=== PATIENT | male | born 1975 | race Caucasian/White ===

== ENCOUNTER 2017-07-23 16:07 | Emergency (ER) | payer BC ==
[~2017-07-23 16:07] MED LIST: Sodium Chloride 0.9% 1,000 ML BAG ONE
--- NOTE | 2017-07-23 17:39 | CT ---
CHEST CT WITHOUT CONTRAST 07/23/17 HISTORY: Pain. COMPARISON: None. TECHNIQUE: Noncontrast chest CT is performed in the axial plane. Reformatted images are submitted for interpreta tion. FINDINGS: Limited evaluation of the mediastinum due to lack of IV contrast. No mediastinal mass lymphadenopathy , or hematoma. Normal heart size. No pericardial effusion. No coronary calcifications. Normal caliber thoracic and upper abdominal aorta. The visualized upper solid organs are unremarkable with the exception of the right kidney where there appears to be longstanding hydronephrosis with resultant right renal cortical thinning. Refer to abd omen CT report for further detail. There are no lytic or blastic lesions in the osseous structures. Trachea and central bronchi are patent. Minimal atelectatic changes in both lower lobes. No masses or consolidation. No pleural effusion or pneumothorax. There is a soft tissue density in the distal thoracic esophagus. There appears to be associated small hiatal hernia. Soft tissue densities within the lumen of the esophagus. The possibility of ingested material versus a component of herniation versus an intraluminal neoplastic process are all different ial considerations. There is a small air fluid level in the mid to distal thoracic esophagus. IMPRESSION: 1. Intraluminal mass in the distal thoracic esophagus as described above. Better interrogation w ith endoscopy is recommended. There does appear to be an associated obstruction. A small air fluid le lang in the distal thoracic esophagus is noted. 2. Presumed chronic hydronephrosis of the right kidney with right renal cortical thinning. Refer to separate abdomen and pelvic CT report for further detail. POS: [facility]
--- NOTE | 2017-07-23 17:56 | CT ---
ABDOMEN CT WITHOUT CONTRAST 07/23/17 HISTORY: Epigastric pain after swallowing a piece of steak today at lunch. Patient having difficulty swallowin g. COMPARISON: None. TECHNIQUE: Abdomen CT is performed without contrast. Coronal reformatted images are submitted for interpretation . FINDINGS: ABDOMEN CT: Dependent atelectatic change in the lung bases. Limited evaluation of the solid organs due to lack of IV contrast. Liver, spleen, pancreas, and adrenal glands are grossly unremarkable. Gallbladder is unremarkable. No gastrohepatic, retrocrural or periportal lymphadenopathy. Visualized mesentery does not demonstrate a mass, lymphadenopathy, free air of free fluid. Gastric mucosal and duodenum and multiple normal caliber small bowel loops are noted. Ileocecal junct ion is normal. Appendix is not appreciated. No inflammation of the cecal apex. Scattered fecal materi al in a nondistended, nondilated colon. There is evidence of diverticulosis without evidence of diver ticulitis. There is marked right sided hydronephrosis. The right ureter does not appear to be enlarged. Findings are presumed to be due to an obstruction at the right ureteropelvic junction. There is atrophy of th e right kidney suggesting a longstanding process. No evidence of left sided obstructive uropathy. As mentioned in the chest CT report, there is a soft tissue density in the distal thoracic esophagus. Given the history that is now provided on the abdomen CT ingested material is favored. Endoscopy is recommended for retrieval. Small air fluid level is noted. IMPRESSION: 1. Ingested material in the distal thoracic esophagus is suspected. Endoscopy for retrieval is r ecommended. 2. There is a small associated air fluid level in the distal thoracic esophagus suggesting a com ponent of obstruction. 3. Marked atrophy of the right kidney due to longstanding obstruction, likely at the right urete ropelvic junction. 4. Diverticulosis, without obvious evidence of diverticulitis. Evaluation of the colon is incomp lete. Given the extent of diverticular disease, nonemergent colonoscopy is recommended. POS: [facility]
[2017-07-23] MEDS ORDERED: Promethazine HCl 25 MG/ML VIAL ONE (20:01)
== END 2017-07-23 22:05 | disposition short-term general hospital (02) ==
LOC: MADERS 16:07
DX: K22.2 Esophageal obstruction (principal); F17.220 Nicotine dependence, chewing tobacco, uncomplicated
CPT/HCPCS: 71250; 74150; 96365; 96375; J1610; J2550; J7050